=== PATIENT | male | born 1950 | race Caucasian/White ===

== ENCOUNTER → 2023-12-19 08:18 | Outpatient (REF) | payer MEDICARE, BC, SELFPAY ==
[2023-12-19 12:15] LABS: Blood Urea Nitrogen 13 mg/dl (9-20); Calcium 9.4 mg/dl (8.4-10.2); Carbon Dioxide 30 mmol/L (22-30); Chloride 102 mmol/L (98-107); Glucose 55 mg/dl (70-99); Potassium 4.3 mmol/L (3.5-5.1); Sodium 138 mmol/L (135-145); eGFR > 60.00
== END ==
LOC: HWLAB 08:18
PROVIDERS: ATTENDING PHYSICIAN Internal Medicine; FAMILY PHYSICIAN Internal Medicine
DX: R10.9 Unspecified abdominal pain (principal)
CPT/HCPCS: 36415; 80048

== ENCOUNTER → 2023-12-20 12:10 | Outpatient (REF) | payer MEDICARE, BC, SELFPAY ==
[2023-12-20 14:30] LABS: Blood Urea Nitrogen 14 mg/dl (9-20); Calcium 9.8 mg/dl (8.4-10.2); Carbon Dioxide 30 mmol/L (22-30); Chloride 98 mmol/L (98-107); Glucose 93 mg/dl (70-99); Potassium 3.8 mmol/L (3.5-5.1); Sodium 139 mmol/L (135-145); eGFR > 60.00
== END ==
LOC: HWRAD 12:10
PROVIDERS: ATTENDING PHYSICIAN Internal Medicine; FAMILY PHYSICIAN Internal Medicine
DX: R10.9 Unspecified abdominal pain (principal)
CPT/HCPCS: 36415; 74177; 80048; Q9967

== ENCOUNTER → 2025-06-19 08:02 | Outpatient (REF) | payer MEDICARE, BC, SELFPAY | LOC: RCS 08:02 | PROVIDERS: ATTENDING PHYSICIAN Internal Medicine | DX: I35.1 Nonrheumatic aortic (valve) insufficiency (principal); N28.9 Disorder of kidney and ureter, unspecified; R42 Dizziness and giddiness | CPT/HCPCS: 93306 ==

== ENCOUNTER 2025-06-24 06:26 | Day surgery (SDC) | payer MEDICARE, BC, SELFPAY | END 2025-06-24 11:55 | disposition home or self-care (01) | LOC: GI 06:26 | PROVIDERS: ATTENDING PHYSICIAN Internal Medicine Gastroenterology | DX: Z12.11 Encounter for screening for malignant neoplasm of colon (principal); K64.8 Other hemorrhoids; Z86.0100 Personal history of colon polyps, unspecified | CPT/HCPCS: 45380; 88305 ==